=== PATIENT | male | born 1985 | race Caucasian/White ===

== ENCOUNTER 2019-01-20 17:16 | Emergency (ER) | payer MEDICAID ==
[~2019-01-20] VITALS: Ht 170.2 cm; Wt 63.7 kg
[2019-01-20 17:19] VITALS: BP 119/88
--- NOTE | 2019-01-20 18:47 | NUR ---
PT HEAD BUTTED HIS FRIEND TUESDAY AND HAS CORDOBA AND NECK PAIN. PT OUT OF METFORMIN FOR 10 DAYS
[2019-01-20] MEDS ORDERED: KETOROLAC 30 MG/1 ML IM/IV ONE (19:00)
[2019-01-20] MEDS ORDERED: KETOROLAC 30 MG/1 ML ONE (19:29)
== END 2019-01-20 19:34 | disposition home or self-care (01) ==
LOC: ED 19:20
DX: E11.9 Type 2 diabetes mellitus without complications (principal); S16.1XXA Strain of muscle, fascia and tendon at neck level, initial encounter; Z76.0 Encounter for issue of repeat prescription; X58.XXXA Exposure to other specified factors, initial encounter; Y93.89 Activity, other specified; Y92.89 Other specified places as the place of occurrence of the external cause; Y99.8 Other external cause status
CPT/HCPCS: 99283